=== PATIENT | male | born 2005 | race Two or more races ===

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

== ENCOUNTER 2023-02-13 21:48 | Emergency (ER) | payer SELFPAY | END 2023-02-13 22:30 | disposition left against medical advice (07) | LOC: MW.ED 21:48 | DX: Z53.21 Procedure and treatment not carried out due to patient leaving prior to being seen by health care provider (principal) ==

== ENCOUNTER 2023-02-14 13:58 | Emergency (ER) | payer SELFPAY | END 2023-02-14 15:44 | disposition home or self-care (01) | LOC: MW.ED 13:58 | DX: Z02.79 Encounter for issue of other medical certificate (principal); M54.6 Pain in thoracic spine; Z88.2 Allergy status to sulfonamides; Z88.8 Allergy status to other drugs, medicaments and biological substances | CPT/HCPCS: 99282; 99283 ==